=== PATIENT | male | born 1995 | race African-American/Black ===

== ENCOUNTER 2017-12-19 05:40 | Observation (INO) | payer OTHER ==
[~2017-12-19] VITALS: Ht 184.2 cm; Wt 93.6 kg
[2017-12-19] MEDS ORDERED: NS IV 1000 ML 1,000 ML IV ONE (05:56)
[2017-12-19] MEDS ORDERED: IBUPROFEN 800 MG (MOTRIN) TAB PO STA (05:56)
[2017-12-19] MEDS ORDERED: ONDN4T PO (05:56)
[2017-12-19] MEDS ORDERED: ACETAMINOPHEN 500 MG TAB (TYLENOL) PO STA (05:56)
--- NOTE | 2017-12-19 06:03 | ED General ---
General Chief Complaint: Cough/Cold/Flu Symptoms Stated Complaint: VOMITING,FEVER,DIZZY,SHAKEY,HOT & COLD Source of Information: Patient Exam Limitations: No Limitations (TRISHA DIETZ MD) History of Present Illness Date Seen by Provider: Dec 19, 2017 Time Seen by Provider: 05:47 Initial Comments Here with report of fever, chills, nausea and vomiting for 2 days. Unable to break the fever with Tylenol and or ibuprofen. He is alternating these about every 6 hours but actually seems to be taking doses less often than that. Has had nausea and vomiting. Was seen at [facility] and given IV fluids and ondansetron. That did help initially a little but is not persisting. Does complain of body aches. Reports decreased urination. Timing/Duration: 1-2 Days Severity: Moderate Associated Systoms: No Cough; Fever/Chills, Nausea/Vomiting; No Shortness of Air; Weakness (TRISHA DIETZ MD) Vitals Signs Temperature: 99.1, Source: Tympanic, Heart Rate: 90, Respiratory Rate: 16, BP: 120/80, Pulse Oximetry: 100 Allergies and Home Medications Allergies Coded Allergies: No Known Drug Allergies (Unverified , 12/19/17) Home Medications Acetaminophen 500 Mg Tablet, 1,000 MG PO Q6H PRN for PAIN-MILD OR TEMPATURE, ( Reported) Albuterol Sulfate 1 Puff Puff, 2 PUFF IH Q4H PRN for SHORTNESS OF BREATH, ( Reported) 1 PUFF = 90 MCG Ibuprofen 200 Mg Tablet, 400 MG PO Q6H PRN for PAIN-MILD OR TEMPATURE, (Reported ) Ondansetron HCl 8 Mg Tablet, 8 MG PO Q12H PRN for NAUSEA/VOMITING-1ST LINE, ( Reported) Patient Home Medication List Home Medication List Reviewed: Yes (TRISHA DIETZ MD) Review of Systems Review of Systems Constitutional: see HPI, chills, fever EENTM: nose congestion; No throat pain Respiratory: No cough, No short of breath Cardiovascular: no symptoms reported Gastrointestinal: nausea, vomiting Genitourinary: decreased output; No dysuria Musculoskeletal: muscle pain Skin: no symptoms reported Psychiatric/Neurological: No Symptoms Reported (TRISHA DIETZ MD) All Other Systems Reviewed Negative Unless Noted: Yes (TRISHA DIETZ MD) Past Mjfbsaw-Swwwtf-Jpeklm Hx Past Med/Social Hx: Reviewed Nursing Past Med/Soc Hx (TRISHA DIETZ MD) Patient Social History Alcohol Use: Occasionally Uses Recreational Drug Use: No Smoking Status: Current Everyday Smoker Recent Foreign Travel: No Contact w/Someone Who Travel: No (TRISHA DIETZ MD) Past Medical History Surgeries: Yes Orthopedic Respiratory: No Cardiac: No Neurological: No Genitourinary: No Gastrointestinal: No Musculoskeletal: No Endocrine: No Cancer: No (TRISHA DIETZ MD) Family Medical History Reviewed Nursing Family Hx (TRISHA DIETZ MD) No Pertinent Family Hx (TRISHA DIETZ MD) Physical Exam Vital Signs Vital Signs - First Documented (ROSALIE RIOS MD) Vital Signs Capillary Refill : (TRISHA DIETZ MD) Height, Weight, BMI Height: '" Weight: lbs. oz. kg; BMI Method: General Appearance: No Apparent Distress, WD/WN HEENT: PERRL/EOMI, Pharyngeal Erythema; No Tonsillar Exudate Neck: Non Tender, Supple Respiratory: Lungs Clear, Normal Breath Sounds Cardiovascular: No Murmur, Tachycardia Gastrointestinal: Non Tender, Soft Back: Normal Inspection, No CVA Tenderness, No Vertebral Tenderness Extremity: Normal Range of Motion, Non Tender Neurologic/Psychiatric: Alert, Oriented x3 Skin: Normal Color, Warm/Dry (TRISHA DIETZ MD) Focused Exam Lactate Level 12/19/17 07:54: Lactic Acid Level 1.37 (ROSALIE RIOS MD) Lactic Acid Level (ROSALIE RIOS MD) Procedures/Interventions I&D : Blade Size: 10 Progress Skin was cleaned with alcohol wipes. Approximately 0.5 mL of one percent lidocaine was injected into the skin directly over the 1 cm abscess. Skin was then incised with a scalpel and a notable amount of purulent drainage was expressed. Cultures were obtained. Wound was dressed with gauze and tape. (ROSALIE RIOS MD) Progress/Results/Core Measures Suspected Sepsis SIRS Temperature: Pulse: Respiratory Rate: Blood Pressure / Mean: (TRISHA DIETZ MD) Results/Orders Lab Results Laboratory Tests Test 12/19/17 06:10 12/19/17 07:43 12/19/17 07:54 12/19/17 10:16 Range/Units White Blood Count 15.0 H 4.3-11.0 10^3/uL Red Blood Count 4.71 4.35-5.85 10^6/uL Hemoglobin 14.5 13.3-17.7 G/DL Hematocrit 41 40-54 % Mean Corpuscular Volume 87 80-99 FL Mean Corpuscular Hemoglobin 31 25-34 PG Mean Corpuscular Hemoglobin Concent 36 32-36 G/DL Red Cell Distribution Width 12.0 10.0-14.5 % Platelet Count 152 130-400 10^3/uL Mean Platelet Volume 10.4 7.4-10.4 FL Neutrophils (%) (Auto) 93 H 42-75 % Lymphocytes (%) (Auto) 2 L 12-44 % Monocytes (%) (Auto) 3 0-12 % Eosinophils (%) (Auto) 2 0-10 % Basophils (%) (Auto) 0 0-10 % Neutrophils # (Auto) 14.0 H 1.8-7.8 X 10^3 Lymphocytes # (Auto) 0.3 L 1.0-4.0 X 10^3 Monocytes # (Auto) 0.5 0.0-1.0 X 10^3 Eosinophils # (Auto) 0.2 0.0-0.3 10^3/uL Basophils # (Auto) 0.0 0.0-0.1 10^3/uL Neutrophils % (Manual) 70 % Lymphocytes % (Manual) 3 % Monocytes % (Manual) 1 % Eosinophils % (Manual) 0 % Basophils % (Manual) 0 % Band Neutrophils 26 % Toxic Granulation 1+ Sodium Level 134 L 135-145 MMOL/L Potassium Level 3.8 3.6-5.0 MMOL/L Chloride Level 102 98-107 MMOL/L Carbon Dioxide Level 21 21-32 MMOL/L Anion Gap 11 5-14 MMOL/L Blood Urea Nitrogen 18 7-18 MG/DL Creatinine 1.64 H 0.60-1.30 MG/DL Estimat Glomerular Filtration Rate > 60 BUN/Creatinine Ratio 11 Glucose Level 112 H 70-105 MG/DL Calcium Level 8.2 L 8.5-10.1 MG/DL Corrected Calcium 8.4 L 8.5-10.1 MG/DL Total Bilirubin 2.1 H 0.1-1.0 MG/DL Aspartate Amino Transf (AST/SGOT) 68 H 5-34 U/L Alanine Aminotransferase (ALT/SGPT) 81 H 0-55 U/L Alkaline Phosphatase 65 40-136 U/L Total Creatine Kinase 820 H 30-200 U/L C-Reactive Protein High Sensitivity 14.23 H 0.00-0.50 MG/DL Total Protein 6.0 L 6.4-8.2 GM/DL Albumin 3.7 3.2-4.5 GM/DL Monoscreen NEGATIVE NEGATIVE Group A Streptococcus Screen NEGATIVE NEGATIVE Urine Color DONA H Urine Clarity CLEAR Urine pH 6 5-9 Urine Specific [place] 1.015 L 1.016-1.022 Urine Protein 2+ H NEGATIVE Urine Glucose (UA) NEGATIVE NEGATIVE Urine Ketones NEGATIVE NEGATIVE Urine Nitrite NEGATIVE NEGATIVE Urine Bilirubin NEGATIVE NEGATIVE Urine Urobilinogen 8 H NORMAL MG/DL Urine Leukocyte Esterase 1+ H NEGATIVE Urine RBC (Auto) NEGATIVE NEGATIVE Urine RBC RARE /HPF Urine WBC 2-5 /HPF Urine Squamous Epithelial Cells NONE /HPF Urine Crystals NONE /LPF Urine Bacteria TRACE /HPF Urine Casts NONE /LPF Urine Mucus NEGATIVE /LPF Urine Culture Indicated YES Lactic Acid Level 1.37 0.50-2.00 MMOL/L Urine Opiates Screen NEGATIVE NEGATIVE Urine Oxycodone Screen NEGATIVE NEGATIVE Urine Methadone Screen NEGATIVE NEGATIVE Urine Propoxyphene Screen NEGATIVE NEGATIVE Urine Barbiturates Screen NEGATIVE NEGATIVE Ur Tricyclic Antidepressants Screen NEGATIVE NEGATIVE Urine Phencyclidine Screen NEGATIVE NEGATIVE Urine Amphetamines Screen NEGATIVE NEGATIVE Urine Methamphetamines Screen NEGATIVE NEGATIVE Urine Benzodiazepines Screen NEGATIVE NEGATIVE Urine Cocaine Screen NEGATIVE NEGATIVE Urine Cannabinoids Screen POSITIVE H NEGATIVE (ROSALIE RIOS MD) Micro Results Microbiology 12/19/17 Influenza Types A,B Antigen (ESEQUIEL) - Final, Complete (ROSALIE RIOS MD) My Orders Orders - ROSALIE RIOS MD Lactated Ringers (Lr 1000 Ml Iv Solution (12/19/17 06:49) Creatine Kinase (12/19/17 06:49) Hs C Reactive Protein (12/19/17 07:03) Blood Culture (12/19/17 07:29) Wound Culture (12/19/17 07:29) Lactic Acid Analyzer (12/19/17 07:29) Lidocaine 1% Inj 20 Ml (Xylocaine 1% Inj (12/19/17 07:25) Saline Lock/Iv-Start (12/19/17 07:48) Lactated Ringers (Lr 1000 Ml Iv Solution (12/19/17 07:48) Fentanyl Injection (Sublimaze Injection (12/19/17 08:00) Monotest (12/19/17 07:49) Rapid Strep A Screen (12/19/17 07:49) Chest 1 View, Ap/Pa Only (12/19/17 07:51) Ceftriaxone For Iv Use (Rocephin For I (12/19/17 08:30) Vancomycin Injection (Vancomycin Injecti (12/19/17 08:30) (ROSALIE RIOS MD) Medications Given in ED Current Medications Medications Dose Ordered Sig/Jama Route Start Time Stop Time Status Last Admin Dose Admin Ceftriaxone Sodium 1000 mg/ Sodium Chloride 50 ml @ 100 mls/hr ONCE ONCE IV 12/19/17 08:30 12/19/17 08:59 DC 12/19/17 08:28 100 MLS/HR Fentanyl Citrate 75 mcg ONCE ONCE IVP 12/19/17 08:00 12/19/17 08:01 DC 12/19/17 08:01 75 MCG Lactated Ringer's 1,000 ml @ 0 mls/hr Q0M ONCE IV 12/19/17 07:48 12/19/17 07:49 DC 12/19/17 08:02 1,000 MLS/HR Lidocaine HCl 20 ml STK-MED ONCE .ROUTE 12/19/17 07:25 12/19/17 07:30 DC 12/19/17 07:32 20 ML Vancomycin HCl 1000 mg/Sodium Chloride 250 ml @ 250 mls/hr ONCE ONCE IV 12/19/17 08:30 12/19/17 09:29 DC 12/19/17 08:42 250 MLS/HR (ROSALIE RIOS MD) Vital Signs/I&O 12/19/17 12/19/17 12/19/17 12/19/17 08:14 08:33 10:22 10:41 Temp 99.9 99.0 98.9 Pulse 96 93 91 Resp 18 18 18 B/P (MAP) 124/49 (74) 106/51 (69) 120/58 (78) Pulse Ox 98 98 97 O2 Delivery Room Air Room Air Room Air 12/19/17 12/19/17 12/19/17 12/19/17 11:30 11:44 12:37 13:00 Temp 98.0 97.9 Pulse 90 90 97 91 Resp 16 16 B/P (MAP) 111/57 (75) 117/56 (76) Pulse Ox 99 99 O2 Delivery Room Air Room Air 12/19/17 15:28 Temp 99.1 Pulse 90 Resp 16 B/P (MAP) 120/80 (93) Pulse Ox 100 O2 Delivery Room Air (ROSALIE RIOS MD) Vital Signs/I&O Capillary Refill : (TRISHA DIETZ MD) Progress Note : Progress Note Seen and evaluated. IV, labs, UA, normal saline 1 L bolus, ibuprofen 800 mg by mouth and acetaminophen 1 g by mouth ordered. Monitor patient. (TRISHA DIETZ MD) Progress Note #1: Time: 07:21 Progress Note Care of this patient was assumed from Dr. Dietz at 06:15. Patient had not urinated after 1 L of IV normal saline. Labs were reviewed. Creatinine is elevated. A liter of LR has been ordered for additional hydration. Patient is still mildly tachycardic. Tylenol and ibuprofen did not improve his pain much. CRP and CK have been added to the orders. Progress Note #2: Time: 07:45 Progress Note Patient has now received 2 L of IV fluids. He has not yet urinated. He is trying now. CRP is elevated and patient still feels very poorly after receiving Tylenol and ibuprofen and being hydrated. I asked about other possible sources of infection. He comments on a lesion on his right knee. He was able to squeeze pus out of it yesterday. This lesion was incised and drained and yielded purulent material. This was sent for culture. I am adding a mono screen and a strep test as patient states he has some sore throat. If these are negative, I will treat him as though he is septic. Patient has no significant pain in the knee joint itself. He has no nuchal rigidity or disproportionate pain in the neck. Blood cultures and lactic acid are being drawn now. Progress Note #3: Time: 09:01 Progress Note Patient is receiving his third liter of IV fluids. Strep and mono screens were negative. The abscess on the right knee was incised and drained. Cultures were sent. This may be the source of his fever and leukocytosis. Sepsis is now suspected. He is receiving Rocephin and vancomycin for initial antibiotic therapy. Fentanyl was given for additional pain control. Although patient's creatinine is elevated, his GFR is actually greater than 60. He meets criteria for sepsis but not severe sepsis. On repeat examination patient had no nuchal rigidity. Kernig sign was negative. There is no suspicion of septic arthritis in the right knee as he could move his knee freely without significant pain and there was no heat or swelling about the joint. (ROSALIE RIOS MD) Diagnostic Imaging Diagonstic Imaging: Xray Plain Films/CT/US/NM/MRI: chest Comments NAME: MARISELA SAAVEDRA MED REC#: [id number] PT STATUS: REG ER : 1995 PHYSICIAN: ROSALIE RIOS MD ADMIT DATE: 12/19/17/ER Signed Date of Exam: 12/19/17 CHEST 1 VIEW, AP/PA ONLY Clinical indication: Patient with fever, nausea, and dizziness. Exam: Portable chest x-ray upright view. Comparisons: None. Findings: Lungs/pleura: Lungs are clear. There is no pneumothorax. There is no pleural effusion. Mediastinum: Unremarkable. Pulmonary vasculature: Unremarkable. Heart: Unremarkable. Bones/extrathoracic soft tissue: Unremarkable. Impression: Unremarkable chest x-ray exam. Dictated by: Dictated on workstation # [id number] Dict: 12/19/17818 Trans: 12/19/17819 Interpreted by: PIERRE BURRIS MD Electronically signed by: PIERRE BURRIS MD 12/19/17819 (ROSALIE RIOS MD) Departure Communication (Admissions) Time/Spoke to Admitting Phy: 08:55 Dr. Barber (ROSALIE RIOS MD) Impression Primary Impression: Sepsis Qualified Codes: A41.9 - Sepsis, unspecified organism Additional Impressions: Abscess of left knee Encounter for incision and drainage procedure Rhabdomyolysis Qualified Codes: M62.82 - Rhabdomyolysis Disposition: ADMITTED INPATIENT Condition: Improved Admissions Decision to Admit Reason: Admit from ER (General) Decision to Admit/Date: Dec 19, 2017 Time/Decision to Admit Time: 08:30 (ROSALIE RIOS MD) Departure-Patient Inst. Referrals: [facility] (PCP/Family) Primary Care Physician TRISHA DIETZ MD Dec 19, 2017 06:03 ROSALIE RIOS MD Dec 19, 2017 07:23
[2017-12-19 06:20] LABS: BASOPHILS % (AUTO) 0 % (0-10); EOSINOPHILS # (AUTO) 0.2 10^3/uL (0.0-0.3); EOSINOPHILS % (AUTO) 2 % (0-10); HEMATOCRIT 41 % (40-54); HEMOGLOBIN 14.5 G/DL (13.3-17.7); LYMPHOCYTES # (AUTO) 0.3 X 10^3 (1.0-4.0); LYMPHOCYTES % (AUTO) 2 % (12-44); MEAN CORPUSCULAR HEMOGLOBIN 31 PG (25-34); MEAN CORPUSCULAR HGB CONC 36 G/DL (32-36); MEAN CORPUSCULAR VOLUME 87 FL (80-99); MEAN PLATELET VOLUME 10.4 FL (7.4-10.4); MONOCYTES # (AUTO) 0.5 X 10^3 (0.0-1.0); MONOCYTES % (AUTO) 3 % (0-12); NEUTROPHILS % (AUTO) 93 % (42-75); PLATELET COUNT 152 10^3/uL (130-400); RED BLOOD COUNT 4.71 10^6/uL (4.35-5.85)
[2017-12-19 06:30] LABS: BAND NEUTROPHILS 26 %; EOSINOPHILS % (MANUAL) 0 %; LYMPHOCYTES % (MANUAL) 3 %; MONOCYTES % (MANUAL) 1 %; NEUTROPHILS % (MANUAL) 70 %
[2017-12-19 06:31] LABS: BASOPHILS % (MANUAL) 0 %; TOXIC GRANULATION/VACUOLAZATIO 1+
[2017-12-19 06:44] LABS: ALANINE AMINOTRANSFERASE 81 U/L (0-55); ALBUMIN 3.7 GM/DL (3.2-4.5); ALKALINE PHOSPHATASE 65 U/L (40-136); BILIRUBIN,TOTAL 2.1 MG/DL (0.1-1.0); BUN/CREATININE RATIO 11; CALCIUM 8.2 MG/DL (8.5-10.1); CARBON DIOXIDE 21 MMOL/L (21-32); CHLORIDE 102 MMOL/L (98-107); CREATININE SERUM 1.64 MG/DL (0.60-1.30); GFR ESTIMATED > 60; GLUCOSE 112 MG/DL (70-105); POTASSIUM 3.8 MMOL/L (3.6-5.0); SODIUM 134 MMOL/L (135-145)
[2017-12-19] MEDS ORDERED: LACTATED RINGERS 1,000 ML IV ONE ×2 (06:49→07:48)
[2017-12-19] MEDS ORDERED: LIDOCAINE 1% INJ 20 ML 20 ML VIAL ONE (07:25)
[2017-12-19] MEDS ORDERED: fentaNYL INJECTION 100 MCG/2 ML AMP IVP ONE (08:00)
[2017-12-19 08:04] LABS: BILIRUBIN,URINE NEGATIVE (NEGATIVE); CLARITY,URINE CLEAR; COLOR,URINE AMBER; GLUCOSE, URINE (UA) NEGATIVE (NEGATIVE); KETONES,URINE NEGATIVE (NEGATIVE); LEUKOCYTE ESTERASE ,URINE 1+ (NEGATIVE); NITRITE,URINE NEGATIVE (NEGATIVE); PH,URINE 6 (5-9); PROTEIN,URINE 2+ (NEGATIVE); UROBILINOGEN,URINE 8 MG/DL (NORMAL)
[2017-12-19 08:13] LABS: BACTERIA,URINE TRACE /HPF; RBC,URINE RARE /HPF
[2017-12-19 08:14] VITALS: BP 124/49
--- NOTE | 2017-12-19 08:22 | Diagnostic Imaging Report ---
Clinical indication: Patient with fever, nausea, and dizziness. Exam: Portable chest x-ray upright view. Comparisons: None. Findings: Lungs/pleura: Lungs are clear. There is no pneumothorax. There is no pleural effusion. Mediastinum: Unremarkable. Pulmonary vasculature: Unremarkable. Heart: Unremarkable. Bones/extrathoracic soft tissue: Unremarkable. Impression: Unremarkable chest x-ray exam. Dictated by: Dictated on workstation # [id number]
[2017-12-19] MEDS ORDERED: VANCOMYCIN INJECTION 1,000 MG in NS (IVPB) 250 ML IV ONE (08:30)
[2017-12-19] MEDS ORDERED: cefTRIAXone FOR IV USE 1,000 MG in NS (IVPB) 50 ML IV ONE (08:30)
[2017-12-19 10:41] VITALS: BP 120/58
[2017-12-19] MEDS ORDERED: CATHETER FLUSH 10 ML SYR IV PRN (10:45)
[2017-12-19] MEDS ORDERED: IBUPROFEN 600 MG (MOTRIN) TAB PO PRN (10:45)
[2017-12-19] MEDS ORDERED: VANCOMYCIN 1 GM/NS 250 ML IVPB IV NR ×2 (10:55)
[2017-12-19 11:30] VITALS: BP 111/57
--- NOTE | 2017-12-19 11:39 | History & Physicial ---
HPI History of Present Illness: HPI/Chief Complaint 22 yo bm with 48 hour hx [place] . Played [employer] game and was well 3 days prior to this admission. He started vomiting 24 hours after the game . He did not identify any food that he thought may have caused the vomiting. He was seen in the [facility] yesterday afternoon and given 1 lite of fluid. At that time he was febrile and tachycardic but improved when he was sent home. He has continued to vomit thru the night and this am and is unable to keep anything down. He does complain of myalgias and abdominal soreness and MONREAL. In addition, he has a scrape on the right knee that he sustained 2 weeks ago. He had expressed some pus from the skin lateral to the excoriation a few days ago. Dr. Linares also found a blister in that location and cultured the exudate this am. Source: patient Exam Limitations: no limitations Date Seen 12/19/17 Time Seen by a Provider: 09:30 Attending Physician Na Ewing MD PCP [facility] Referring Physician Date of Admission Dec 19, 2017 at 09:14 Home Medications & Allergies Home Medications Reviewed patient Home Medication Reconciliation performed by pharmacy medication reconciliations library technician and/or nursing. Patients Allergies have been reviewed. Allergies Allergies Coded Allergies No Known Drug Allergies ([id number]/16/18) Past Erdkuvb-Kyvvnh-Shovwb Hx Patient Social History Marrital Status: single Employed/Student: student, part-time Alcohol Use: Occasionally Uses Recreational Drug Use: No Smoking Status: Current Everyday Smoker Type Used: Cigarettes 2nd Hand Smoke Exposure: Yes Recent Foreign Travel: No Contact w/other who traveled: No Recent Hopitalizations: No Recent Infectious Disease Expo: No Seasonal Allergies Seasonal Allergies: No Surgeries Yes Orthopedic Respiratory No Cardiovascular No Neurological No Genitourinary No Gastrointestinal No Musculoskeletal No Endocrine History of Endocrine Disorders: No HEENT History of HEENT Disorders: No Cancer No Psychosocial History of Psychiatric Problem: No Integumentary History of Skin or Integumenta: No Blood Transfusions History of Blood Disorders: No Family Medical History Significant Family History: No Pertinent Family Hx Review of Systems Constitutional: see HPI, chills, fever, weakness EENTM: no symptoms reported Respiratory: no symptoms reported Cardiovascular: no symptoms reported Gastrointestinal: nausea, vomiting Genitourinary: no symptoms reported Musculoskeletal: muscle stiffness Psychiatric/Neurological: Headache Physical Exam Physical Exam Vital Signs Vital Signs - First Documented Capillary Refill : Less Than 3 Seconds Height, Weight, BMI Height: 6'0.50" Weight: 206lbs. 7.0oz. 93.989371wx; 27.6 BMI Method:Stated General Appearance: Mild Distress Eyes: Bilateral Eye Normal Inspection HEENT: Normal ENT Inspection Neck: Supple Respiratory: Lungs Clear, Normal Breath Sounds, No Accessory Muscle Use, No Respiratory Distress Cardiovascular: No Murmur, Tachycardia Gastrointestinal: Normal Bowel Sounds, Non Tender, Soft Rectal: Deferred Extremity: Inflammation, Other (right kneecap healing excoriation . 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
[2017-12-19] MEDS: NS IV 1000 ML 1,000 ML IV SCH ×2 (11:46→19:54)
[2017-12-19] MEDS ORDERED: ONDA8TAB12 PO (12:29)
[2017-12-19] MEDS ORDERED: IBUP-30 PO (12:29)
[2017-12-19] MEDS ORDERED: ACET-2267 PO (12:29)
[2017-12-19] MEDS ORDERED: RT-ALBUINH IH (12:30)
[2017-12-19 12:37] VITALS: BP 117/56
[2017-12-19 13:42] LABS: AMPHETAMINE SCREEN, URINE NEGATIVE (NEGATIVE); BARBITURATE SCREEN URINE NEGATIVE (NEGATIVE); BENZODIAZEPINES SCREEN URINE NEGATIVE (NEGATIVE); CANNABINOID SCREEN, URINE POSITIVE (NEGATIVE); COCAINE SCREEN URINE NEGATIVE (NEGATIVE); METHADONE STAT NEGATIVE (NEGATIVE); METHAMPHETAMINE SCREEN URINE S NEGATIVE (NEGATIVE); OPIATE SCREEN URINE NEGATIVE (NEGATIVE); OXYCODONE STAT NEGATIVE (NEGATIVE); PROPOXYPHENE STAT NEGATIVE (NEGATIVE); TRICYCLIC ANTIDEPRESSANTS SCRE NEGATIVE (NEGATIVE)
[2017-12-19] MEDS ORDERED: FLU QUADRIvalent (5+ YOA) 2018-2019 (AFLURIA) 0.5 ML IM ONE (14:45)
[2017-12-19 15:28] VITALS: BP 120/80
[2017-12-19] MEDS: ACETAMINOPHEN 500 MG TAB (TYLENOL) PO PRN (18:16)
[2017-12-19] MEDS: ONDANSETRON 4 MG/2 ML (SDV) Z0FRAN IV PRN (19:53)
--- NOTE | 2017-12-19 20:14 | CONSULTATION REPORT ---
DATE OF SERVICE: 12/19/2017 INPATIENT CONSULTATION REASON FOR CONSULTATION: Right knee localized abscess. 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 He was admitted for IV antibiotics. While in the Emergency Department, he was found to have a localized purulent collection in his patellar region. This was under local anesthetic debrided in the Emergency Department. I spoke with , who performed this and stated that there was perhaps 1 mL of purulent material that was very superficial and associated with an abrasion. The patient reports that he has had no recent knee pain or swelling. He has had no recent knee injuries. On exam, his right knee demonstrates no effusion, no erythema or warmth. His range of motion is full. He has no joint line tenderness. No prepatellar bursitis was noted. There is a superficial abrasion medial to his area that was incised. IMPRESSION: Localized superficial abscess right knee without any evidence whatsoever of septic arthritis. PLAN: Continue with observation. If there are any further problems, please do not hesitate to let me know. Thank you for the consultation. Job ID: [id number] DocumentID: [id number] Dictated Date: 12/19/2017 15:31:00 Flour Distributor Date: 12/19/2017 20:13:44 Dictated By: ALTAGRACIA RUDOLPH MD
[2017-12-19 20:27] VITALS: BP 160/62
[2017-12-19] MEDS ORDERED: VANCOMYCIN 1500 MG/NS 500 ML IVPB IV SCH ×2 (22:00)
[2017-12-20] VITALS: BP 129/60
[2017-12-20] MEDS: ACETAMINOPHEN 500 MG TAB (TYLENOL) PO PRN ×2 (00:55→13:44)
[2017-12-20] MEDS: ONDANSETRON 4 MG/2 ML (SDV) Z0FRAN IV PRN ×2 (00:55→23:08)
[2017-12-20] MEDS: NS IV 1000 ML 1,000 ML IV SCH ×4 (00:56→21:55)
[2017-12-20] MEDS: PROMETHAZINE INJ 25 MG/ML (PHENERGAN) AMP IVP PRN (03:39)
[2017-12-20 04:15] VITALS: BP 131/65
[2017-12-20 05:17] LABS: BASOPHILS % (AUTO) 0 % (0-10); EOSINOPHILS # (AUTO) 0.5 10^3/uL (0.0-0.3); EOSINOPHILS % (AUTO) 5 % (0-10); HEMATOCRIT 36 % (40-54); HEMOGLOBIN 13.2 G/DL (13.3-17.7); LYMPHOCYTES # (AUTO) 0.5 X 10^3 (1.0-4.0); LYMPHOCYTES % (AUTO) 4 % (12-44); MEAN CORPUSCULAR HEMOGLOBIN 32 PG (25-34); MEAN CORPUSCULAR HGB CONC 37 G/DL (32-36); MEAN CORPUSCULAR VOLUME 86 FL (80-99); MEAN PLATELET VOLUME 10.5 FL (7.4-10.4); MONOCYTES # (AUTO) 0.3 X 10^3 (0.0-1.0); MONOCYTES % (AUTO) 3 % (0-12); NEUTROPHILS # (AUTO) 10.2 X 10^3 (1.8-7.8); NEUTROPHILS % (AUTO) 88 % (42-75); PLATELET COUNT 116 10^3/uL (130-400); RED BLOOD COUNT 4.14 10^6/uL (4.35-5.85); WHITE BLOOD COUNT 11.6 10^3/uL (4.3-11.0)
[2017-12-20 05:36] LABS: ALANINE AMINOTRANSFERASE 72 U/L (0-55); ALBUMIN 3.1 GM/DL (3.2-4.5); ALKALINE PHOSPHATASE 55 U/L (40-136); BILIRUBIN,TOTAL 1.3 MG/DL (0.1-1.0); BUN/CREATININE RATIO 10; CARBON DIOXIDE 21 MMOL/L (21-32); CHLORIDE 107 MMOL/L (98-107); CREATININE SERUM 1.09 MG/DL (0.60-1.30); GFR ESTIMATED > 60; GLUCOSE 95 MG/DL (70-105); MAGNESIUM 1.5 MG/DL (1.8-2.4); POTASSIUM 3.8 MMOL/L (3.6-5.0); SODIUM 138 MMOL/L (135-145); TOTAL PROTEIN 5.2 GM/DL (6.4-8.2)
[2017-12-20] MEDS ORDERED: RECEIVED CONTRAST (Hold Metformin) IV SCH (07:30)
[2017-12-20] MEDS ORDERED: IOHEXOL 350 MG/ML 100 ML (OMNIPAQUE 350) VIAL IV ONE (07:30)
[2017-12-20] MEDS ORDERED: NS 250 ML (IVPB) BAG IV ONE (07:30)
[2017-12-20 08:00] VITALS: BP 145/67
--- NOTE | 2017-12-20 08:15 | Diagnostic Imaging Report ---
PROCEDURE: CT abdomen and pelvis with and without contrast. TECHNIQUE: Precontrast acquisitions were acquired through the abdomen and pelvis. Multiple contiguous axial images were obtained through the abdomen and pelvis after the administration of intravenous contrast. INDICATION: Abdominal pain and dehydration. There is mild low-density throughout the liver indicating hepatic steatosis. No pancreatic, gallbladder, splenic or adrenal gland abnormalities identified. Kidneys have normal appearance. Evaluation of the abdominal contents is somewhat limited due to paucity of intra-abdominal fat, however, there is no evidence of localized inflammation or organized fluid collection. There is evidence of appendiceal inflammation. The partially opacified urinary bladder is unremarkable. IMPRESSION: There is no CT evidence of acute abnormality in the abdomen or pelvis. There may be diffuse hepatic steatosis. Dictated by: Dictated on workstation # [id number]
[2017-12-20] MEDS: cefTRIAXone 1 GM/NS 50 ML IVPB IV SCH ×2 (08:51)
--- NOTE | 2017-12-20 08:52 | Progress Note-Hospitalist ---
Subjective HPI/CC On Admission Date Seen by Provider: Dec 20, 2017 Time Seen by Provider: 08:30 22 yo bm with 48 hour hx [place] . Played [employer] game and was well 3 days prior to this admission. He started vomiting 24 hours after the game . He did not identify any food that he thought may have caused the vomiting. He was seen in the [facility] yesterday afternoon and given 1 lite of fluid. At that time he was febrile and tachycardic but improved when he was sent home. He has continued to vomit thru the night and this am and is unable to keep anything down. He does complain of myalgias and abdominal soreness and MONREAL. In addition, he has a scrape on the right knee that he sustained 2 weeks ago. He had expressed some pus from the skin lateral to the excoriation a few days ago. Dr. Linares also found a blister in that location and cultured the exudate this am. Subjective/Events-last exam Patient has continued to have abdominal pain and vomiting throughout the evening. White count is down to 11,000 hemoglobins dropped to 13, and platelets have decreased. The patient was given a heating pad and pfennig renin and this is helped the abdominal pain and vomiting. Because of the elevated white count and persistent abdominal pain CT abdomen pelvis with contrast was obtained this morning which was unremarkable. Urine drug screen shows that there is cannabis. This morning he is lying quietly and feels somewhat better than he did through the night Review of Systems Gastrointestinal: Nausea, Vomiting, Abdominal Pain Neurological: Weakness Focused Exam Sepsis Stage: Sepsis Lactate Level 12/19/17 07:54: Lactic Acid Level 1.37 Time of Focused Exam: 08:30 Respiratory: Chest Non Tender, Lungs Clear, Normal Breath Sounds, No Accessory Muscle Use, No Respiratory Distress Cardiovascular: Regular Rate, Rhythm, No Gallop, No Murmur, Normal Peripheral Pulses Capillary Refill: Less Than 3 Seconds Skin: normal color, warm/dry Objective Exam Vital Signs Vital Signs Date Time Temp Pulse Resp B/P (MAP) Pulse Ox O2 Delivery O2 Flow Rate FiO2 12/20/17 08:00 99.1 65 17 145/67 (93) 100 Room Air Capillary Refill : Less Than 3 Seconds General Appearance: No Apparent Distress, WD/WN HEENT: Normal ENT Inspection Neck: Full Range of Motion, Non Tender, Supple Respiratory: Lungs Clear, Normal Breath Sounds, No Accessory Muscle Use, No Respiratory Distress Cardiovascular: Regular Rate, Rhythm, No Gallop, No Murmur Gastrointestinal: Normal Bowel Sounds, Soft, Tenderness (Left lower quadrant) Rectal: Deferred Back: Normal Inspection Extremity: Normal Capillary Refill, Normal Inspection, Normal Range of Motion, Non Tender Results/Procedures Lab Laboratory Tests 12/20/17 05:05 Patient resulted labs reviewed. Assessment/Plan Assessment and Plan Assess & Plan/Chief Complaint 1. Sepsis resolving 2. Dehydration improving 3. Abdominal pain of uncertain etiology. Possible cannabis hyperemesis syndrome. Sickle cell anemia is another possibility. 4. Nausea and vomiting 5. Elevated liver function tests and thrombocytopenia. [place] screen is negative however will either recheck her get a heterophile antibody test. 6. Small abscess right knee cultures pending on vancomycin and Rocephin. Clinical Quality Measures DVT/VTE Risk/Contraindication: Risk Factor Score Per Nursin RFS Level Per Nursing on Admit: 3=High ELLEN EWING MD Dec 20, 2017 08:52
[2017-12-20] MEDS ORDERED: TROUGH ORDER-PHARMACY XX NR (09:00)
[2017-12-20] MEDS: VANCOMYCIN 1500 MG/NS 500 ML IVPB IV SCH ×4 (10:25→17:28)
[2017-12-20 12:00] VITALS: BP 133/62
[2017-12-20] MEDS: MAGNESIUM 1 GM/100 ML IVPB 100 ML IV SCH ×2 (12:49→13:44)
[2017-12-20 16:22] VITALS: BP 134/67
[2017-12-20 20:14] VITALS: BP 132/64
[2017-12-21] VITALS: BP 135/74
[2017-12-21] MEDS: VANCOMYCIN 1500 MG/NS 500 ML IVPB IV SCH ×2 (02:04)
[2017-12-21] MEDS: PROMETHAZINE INJ 25 MG/ML (PHENERGAN) AMP IVP PRN (02:04)
[2017-12-21 04:00] VITALS: BP 128/62
[2017-12-21] MEDS: ACETAMINOPHEN 500 MG TAB (TYLENOL) PO PRN (04:20)
[2017-12-21 05:03] LABS: BASOPHILS % (AUTO) 0 % (0-10); EOSINOPHILS # (AUTO) 0.7 10^3/uL (0.0-0.3); EOSINOPHILS % (AUTO) 6 % (0-10); HEMATOCRIT 35 % (40-54); HEMOGLOBIN 12.4 G/DL (13.3-17.7); LYMPHOCYTES % (AUTO) 9 % (12-44); MEAN CORPUSCULAR HEMOGLOBIN 31 PG (25-34); MEAN CORPUSCULAR HGB CONC 36 G/DL (32-36); MEAN CORPUSCULAR VOLUME 87 FL (80-99); MEAN PLATELET VOLUME 10.7 FL (7.4-10.4); MONOCYTES # (AUTO) 0.4 X 10^3 (0.0-1.0); MONOCYTES % (AUTO) 4 % (0-12); NEUTROPHILS # (AUTO) 8.8 X 10^3 (1.8-7.8); NEUTROPHILS % (AUTO) 81 % (42-75); PLATELET COUNT 149 10^3/uL (130-400); RED BLOOD COUNT 4.01 10^6/uL (4.35-5.85); WHITE BLOOD COUNT 10.9 10^3/uL (4.3-11.0)
[2017-12-21 05:23] LABS: ALANINE AMINOTRANSFERASE 95 U/L (0-55); ALKALINE PHOSPHATASE 56 U/L (40-136); BILIRUBIN,TOTAL 0.6 MG/DL (0.1-1.0); BUN/CREATININE RATIO 6; CALCIUM 7.8 MG/DL (8.5-10.1); CARBON DIOXIDE 21 MMOL/L (21-32); CHLORIDE 108 MMOL/L (98-107); CREATININE SERUM 1.02 MG/DL (0.60-1.30); GFR ESTIMATED > 60; GLUCOSE 93 MG/DL (70-105); POTASSIUM 3.6 MMOL/L (3.6-5.0); SODIUM 139 MMOL/L (135-145)
[2017-12-21] MEDS: NS IV 1000 ML 1,000 ML IV SCH (05:24)
[2017-12-21 08:00] VITALS: BP 134/63
[2017-12-21] MEDS: cefTRIAXone 1 GM/NS 50 ML IVPB IV SCH ×2 (08:16)
[2017-12-21] MEDS ORDERED: TROUGH ORDER-PHARMACY XX NR (09:00)
--- NOTE | 2017-12-21 09:30 | Discharge Summary-Hospitalist ---
Diagnosis/Chief Complaint Date of Admission Dec 19, 2017 at 09:14 Date of Discharge Dec Discharge Date: Dec 21, 2017 Discharge Time: 10:00 Admission Diagnosis sepsis dehydration\ vomiting elevated WBC and crp elevated cpk, Cr,LFT's may all be secondary to sepsis Abcess-s/p I and D-with cultures Discharge Diagnosis Sepsis Viral syndrome Abscess-staph Elevated liver enzymes Dehydration Discharge Summary Procedures/Consulations DR. Lara I and D Discharge Physical Exam Allergies: Coded Allergies: No Known Drug Allergies (Unverified , 12/19/17) Vitals & I&Os Vital Signs Date Time Temp Pulse Resp B/P (MAP) Pulse Ox O2 Delivery O2 Flow Rate FiO2 12/21/17 04:50 99.6 12/21/17 04:00 100 22 128/62 (84) 96 Room Air General Appearance: No Apparent Distress, WD/WN HEENT: Normal ENT Inspection, Pharynx Normal Respiratory: Chest Non Tender, Lungs Clear, Normal Breath Sounds, No Accessory Muscle Use, No Respiratory Distress Cardiovascular: Regular Rate, Rhythm, No Gallop, No Murmur, Normal Peripheral Pulses Gastrointestinal: Normal Bowel Sounds, Non Tender, Soft Extremity: Normal Inspection, Normal Range of Motion, Non Tender, No Calf Tenderness Skin: Warm/Dry Neurologic/Psychiatric: Alert, Oriented x3, No Motor/Sensory Deficits, Normal Mood/Affect, social services manager II-XII Norm as Tested Hospital Course 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 Upon presentation to the emergency room there was an incidental finding of an abscess on the right knee. This was small and underwent incision and drainage in the ER .cultures are growing out staph unknown sensitivity. The patient underwent aggressive IV fluid hydration. He was started on Rocephin and vancomycin empirically. The patient began to improve slowly but then had a recrudescence of his vomiting and increased abdominal pain on the second hospital day. CT abdomen pelvis was obtained with contrast that showed a slightly fatty liver but otherwise no acute process. At the time of discharge the patient has had a temperature up to 100.4, but is eating and drinking normally without any other symptoms. Platelet count did drop temporarily but is returned to normal. Patient's white count was 15,000 at the time of admission and stick increased to 10,000. Sickle cell screening was negative. [place] screen 2 was negative. Influenza A and B was negative. The patient remains weak but improved. He will be discharged on Keflex with possibility of being changed to a different antibiotic once sensitivities of the staph is known. It is not my feeling that the incidental finding of a small abscess lateral to the knee had an impact on this hospitalization. This also sepsis was probably secondary to a viral syndrome possibly related to mosquito borne infection. Labs (last 24 hrs) Laboratory Tests 12/21/17 04:47: White Blood Count 10.9, Red Blood Count 4.01L, Hemoglobin 12.4L, Hematocrit 35L , Mean Corpuscular Volume 87, Mean Corpuscular Hemoglobin 31, Mean Corpuscular Hemoglobin Concent 36, Red Cell Distribution Width 12.0, Platelet Count 149, Mean Platelet Volume 10.7H, Neutrophils (%) (Auto) 81H, Lymphocytes (%) (Auto) 9L, Monocytes (%) (Auto) 4, Eosinophils (%) (Auto) 6, Basophils (%) (Auto) 0, Neutrophils # (Auto) 8.8H, Lymphocytes # (Auto) 1.0, Monocytes # (Auto) 0.4, Eosinophils # (Auto) 0.7H, Basophils # (Auto) 0.0, Sodium Level 139, Potassium Level 3.6, Chloride Level 108H, Carbon Dioxide Level 21, Anion Gap 10, Blood Urea Nitrogen 6L, Creatinine 1.02, Estimat Glomerular Filtration Rate > 60, BUN/ Creatinine Ratio 6, Glucose Level 93, Calcium Level 7.8L, Corrected Calcium 8.6 , Total Bilirubin 0.6, Aspartate Amino Transf (AST/SGOT) 213H, Alanine Aminotransferase (ALT/SGPT) 95H, Alkaline Phosphatase 56, Total Protein 5.0L, Albumin 3.0L 12/21/17 09:00: Microbiology 12/19/17 Blood Culture - Preliminary, Resulted No growth 12/19/17 Throat Culture - Preliminary, Resulted No Beta Strep isolated 12/19/17 Urine Culture - Final, Complete NO GROWTH 12/19/17 Gram Stain - Final, Resulted 12/19/17 Wound Culture - Preliminary, Resulted Staphylococcus aureus Patient resulted labs reviewed. Pending Labs Laboratory Tests 12/21/17 04:47: White Blood Count 10.9, Red Blood Count 4.01, Hemoglobin 12.4, Hematocrit 35, Mean Corpuscular Volume 87, Mean Corpuscular Hemoglobin 31, Mean Corpuscular Hemoglobin Concent 36, Red Cell Distribution Width 12.0, Platelet Count 149, Mean Platelet Volume 10.7, Neutrophils (%) (Auto) 81, Lymphocytes (%) (Auto) 9, Monocytes (%) (Auto) 4, Eosinophils (%) (Auto) 6, Basophils (%) (Auto) 0, Neutrophils # (Auto) 8.8, Lymphocytes # (Auto) 1.0, Monocytes # (Auto) 0.4, Eosinophils # (Auto) 0.7, Basophils # (Auto) 0.0, Sodium Level 139, Potassium Level 3.6, Chloride Level 108, Carbon Dioxide Level 21, Anion Gap 10, Blood Urea Nitrogen 6, Creatinine 1.02, Estimat Glomerular Filtration Rate > 60, BUN/ Creatinine Ratio 6, Glucose Level 93, Calcium Level 7.8, Corrected Calcium 8.6, Total Bilirubin 0.6, Aspartate Amino Transf (AST/SGOT) 213, Alanine Aminotransferase (ALT/SGPT) 95, Alkaline Phosphatase 56, Total Protein 5.0, Albumin 3.0 12/21/17 09:00: Vancomycin Level Trough [Pending] Imaging: Reviewed Imaging Report Discussion & Recommendations Discharge Planning: >30 minutes discharge planning Discharge Home Medications: Active Scripts Active Reported Proair Hfa (Albuterol Sulfate) 1 Puff Puff 2 Puff IH Q4H PRN 1 PUFF = 90 MCG Tylenol Extra Strength (Acetaminophen) 500 Mg Tablet 1,000 Mg PO Q6H PRN Advil (Ibuprofen) 200 Mg Tablet 400 Mg PO Q6H PRN Ondansetron HCl 8 Mg Tablet 8 Mg PO Q12H PRN Condition at discharge Stable Instructions to patient/family Please see electronic discharge instructions given to patient. Clinical Quality Measures DVT/VTE Risk/Contraindication: Risk Factor Score Per Nursin RFS Level Per Nursing on Admit: 3=High Copy Copies To 1: ELLEN EWING MD, KATHLEEN M MD Dec 21, 2017 09:30
[2017-12-21] MEDS ORDERED: CEPH-507 PO (09:33)
== END 2017-12-21 09:30 | disposition home or self-care (01) ==
LOC: ER 05:44 → UNDOADMOB 09:14 → 4TH 09:14 → UNDODISOB 12-21 10:05
PROVIDERS: ADMIT Internal Medicine; ATTEND Internal Medicine
DX: A41.9 Sepsis, unspecified organism (principal); B34.9 Viral infection, unspecified; L02.415 Cutaneous abscess of right lower limb; E86.0 Dehydration; R11.10 Vomiting, unspecified; B95.8 Unspecified staphylococcus as the cause of diseases classified elsewhere; F17.210 Nicotine dependence, cigarettes, uncomplicated; D69.6 Thrombocytopenia, unspecified; R79.89 Other specified abnormal findings of blood chemistry
CPT/HCPCS: 10060; 36415; 71045; 74178; 80053; 80202; 80306; 81000; 82550; 83605; 83735; 85007; 85025; 85027; 85660; 86141; 86308; 87040; 87070; 87077; 87088; 87186; 87205; 87430; 87804; 96361; 96365; 96375; G0378

== ENCOUNTER → 2018-06-11 | Outpatient (CLI) | payer OTHER ==
[~2018-06-11] VITALS: Ht 188 cm; Wt 88.5 kg
[~2018-06-11] MED LIST: ACET-2267 PO; CEPH-507 PO; GADOBUTROL 7.5 MMOL/7.5 ML (GADAVIST) VIAL IV ONE; IBUP-30 PO; IOHEXOL 240 MGI/ML 20 ML (OMNIPAQUE) VIAL IV ONE; LIDOCAINE 1% INJ 20 ML 20 ML VIAL INJ ONE; ONDA8TAB12 PO; ONDN4T PO; RT-ALBUINH IH
--- NOTE | 2018-06-11 11:17 | Diagnostic Imaging Report ---
EXAMINATION: Left shoulder injection for MRI. INDICATION: Left shoulder pain. COMPARISON: There are no prior studies available for comparison. TECHNIQUE: After aseptic preparation of the skin and administration of local anesthesia, a 22-gauge needle was advanced into the glenohumeral joint using fluoroscopic guidance. Approximately 12 cc of a mixture of Omnipaque 240, Gadovist, and sodium chloride was infused. The patient tolerated the procedure well and was dismissed to the MRI suite in good condition. IMPRESSION: There has been a successful injection of the left glenohumeral joint. MRI is pending for further evaluation. Dictated by: Dictated on workstation # [id number]
--- NOTE | 2018-06-11 18:59 | Diagnostic Imaging Report ---
PROCEDURE: MRI left joint upper extremity with contrast. TECHNIQUE: Multiplanar, multisequence contrast-enhanced MRI of the left upper extremity was accomplished. INDICATION: Shoulder pain. COMPARISON: There are no previous studies available for comparison. FINDINGS: There is a tear of the posterior labrum extending from 2 o'clock to 6 o'clock. The labrum is otherwise intact. There is no abnormal signal arising from the rotator cuff to suggest a tear, and the supraspinatus muscle is not retracted or bunched. The acromioclavicular joint is not hypertrophied, and there is no narrowing of the outlet for the supraspinatus muscle. The biceps tendon and subscapularis tendon are intact. There is no abnormal signal arising from the osseous structures to suggest bone edema or a fracture. IMPRESSION: 1. The posterior labrum is torn from the 2 o'clock to 6 o'clock position. 2. There is no evidence for a tear of the rotator cuff, and the supraspinatus muscle is not retracted or bunched. 3. There is no sign of an acute bony abnormality. Dictated by: Dictated on workstation # [id number]
== END ==
LOC: RAD 10:02
PROVIDERS: ATTEND Orthopaedic Surgery
DX: S43.492A Other sprain of left shoulder joint, initial encounter (principal)
CPT/HCPCS: 23350; 73040; 73222

== ENCOUNTER → 2018-12-28 | Outpatient (CLI) | payer OTHER ==
[~2018-12-28] MED LIST changes: -GADOBUTROL 7.5 MMOL/7.5 ML (GADAVIST) VIAL IV ONE; -IOHEXOL 240 MGI/ML 20 ML (OMNIPAQUE) VIAL IV ONE; -LIDOCAINE 1% INJ 20 ML 20 ML VIAL INJ ONE
--- NOTE | 2018-12-28 11:03 | Diagnostic Imaging Report ---
PROCEDURE: MRI left joint lower extremity without contrast. TECHNIQUE: Multiplanar, multisequence non contrast-enhanced MRI of the left lower extremity was accomplished. INDICATION: Football injury, knee pain. COMPARISON: There are no prior studies available for comparison. FINDINGS: On the coronal STIR series there is a prominent area of increased signal involving the anteromedial aspect of the medial femoral condyle. Most likely this is due to bone edema from a recent contusion and/or a microfracture. There is also considerable soft tissue edema along the medial aspect of the medial femoral condyle. The medial collateral ligament in this area is indistinct and I suspect it is at least partially if not completely torn. The sagittal proton dense fat saturated series also shows increased signal involving the infrapatellar tendon near its attachment to the inferior pole of the patella. I suspect that there is a partial tear of the attachment of the infrapatellar tendon in this region. The tendon itself is otherwise intact. The T2 axial fat saturated series also shows at the medial retinaculum near its attachment to the patella is also somewhat irregular and I suspect there may be a small partial tear of the medial retinaculum as well. There is no abnormal signal arising from either meniscus to indicate a tear. The anterior and posterior cruciate ligaments, the quadriceps tendon, the fibular collateral ligament, the biceps femoris tendon and the iliotibial band are intact. There is also a small area of bone edema involving the subarticular region of the anterior aspect of the lateral tibial plateau. This too may be related to a recent contusion and/or microfracture. There is a small joint effusion present. There is no evidence for a Rand's cyst. IMPRESSION: 1. There is a prominent area of bone edema involving the anteromedial aspect of the medial femoral condyle. There is considerable soft tissue edema in this region and the indistinct appearance of the medial collateral ligament does suggest that it is at least partially if not completely torn. There also appear to be small partial tears involving the attachment of the infrapatellar tendon to the patella and the medial retinaculum to the patella. 2. The other major ligaments and tendons are intact. 3. There is no sign of a tear of either meniscus. 4. There is also a small area of bone edema along the anterior aspect of the lateral tibial plateau. Dictated by: Dictated on workstation # [id number]
== END ==
LOC: RAD 08:58
PROVIDERS: ATTEND Orthopaedic Surgery
DX: S83.412A Sprain of medial collateral ligament of left knee, initial encounter (principal); M89.9 Disorder of bone, unspecified
CPT/HCPCS: 73721